=== PATIENT | female | born 1995 | race Caucasian/White ===

== ENCOUNTER 2016-06-16 07:58 | Emergency (ER) | payer BC ==
[~2016-06-16] VITALS: Ht 167.6 cm; Wt 111.9 kg
[2016-06-16] MEDS ORDERED: BUPR-173 PO (08:24)
[2016-06-16] MEDS ORDERED: SERT25TA PO (08:24)
[2016-06-16] MEDS ORDERED: ONDANSETRON 2MG/ML, 2ML IVPush ONE (08:30)
[2016-06-16] MEDS ORDERED: SODIUM CHLORIDE FLUSH 10ML SYR IVF ONE (08:30)
[2016-06-16] MEDS ORDERED: SODIUM CHLORIDE 0.9% 1,000ML IVBOLUS ONE (08:30)
[2016-06-16] MEDS ORDERED: FAMOTIDINE 20 MG/2 ML IVP ONE (08:30)
[2016-06-16 08:40] LABS: HEMOGLOBIN 14.4 g/dL (11.7-16.4)
[2016-06-16] MEDS ORDERED: ONDANSETRON 2MG/ML, 2ML ONE (08:42)
[2016-06-16] MEDS ORDERED: FAMOTIDINE 20 MG/2 ML ONE (08:43)
[2016-06-16 08:52] LABS: BLOOD UREA NITROGEN 16 mg/dL (7-18)
[2016-06-16 10:25] VITALS: BP 136/86
== END 2016-06-16 10:28 | disposition home or self-care (01) ==
LOC: ED 10:10
DX: K29.00 Acute gastritis without bleeding (principal); R11.2 Nausea with vomiting, unspecified; F32.9 Major depressive disorder, single episode, unspecified
CPT/HCPCS: 36415; 80048; 81001; 82040; 84703; 85025; 87086; 96361; 96374; 96375; 99284; J2405; J7030; S0028

== ENCOUNTER 2018-09-13 01:10 | Emergency (ER) | payer BC, OTHER ==
[~2018-09-13] VITALS: Ht 167.6 cm; Wt 119.0 kg
[~2018-09-13 01:10] MED LIST: BUPR-173 PO; SERT25TA PO
[2018-09-13 01:11] VITALS: BP 125/89
[2018-09-13] MEDS ORDERED: SODIUM CHLORIDE FLUSH 10ML SYR IVF ONE (01:30)
[2018-09-13] MEDS ORDERED: SODIUM CHLORIDE 0.9% 1,000ML IVBOLUS ONE (01:30)
[2018-09-13] MEDS ORDERED: ONDANSETRON 2MG/ML, 2ML IVPush ONE (01:30)
[2018-09-13] MEDS ORDERED: ONDANSETRON 2MG/ML, 2ML ONE (01:31)
[2018-09-13 01:49] LABS: BASOPHILS # (AUTO) 0.11 x10^3/uL (0-0.1); BASOPHILS % (AUTO) 1 % (0-1); EOSINOPHILS % (AUTO) 4 % (1-7); LYMPHOCYTES # (AUTO) 3.51 x10^3/uL (1-3.4); LYMPHOCYTES % (AUTO) 37 % (22-44); MD NO; MEAN CORPUSCULAR VOLUME 87.9 fL (80-100); MONOCYTES # (AUTO) 0.83 x10^3/uL (0.2-0.8); MONOCYTES % (AUTO) 9 % (2-9); NEUTROPHILS # (AUTO) 4.62 x10^3/uL (1.8-6.8); NEUTROPHILS % (AUTO) 49 % (42-75); PLATELET COUNT 346 x10^3/uL (130-400); RED BLOOD COUNT 4.33 x10^6/uL (3.82-5.3); RED CELL DISTRIBUTION WIDTH 15.3 % (9.6-15.2)
[2018-09-13 01:59] LABS: ALANINE AMINOTRANSFERASE 24 U/L (12-78); ALBUMIN 3.5 g/dL (3.4-5.0); ANION GAP 6 mmol/L (5-15); CALCIUM 8.7 mg/dL (8.5-10.1); CHLORIDE 109 mmol/L (98-107); CREATININE 0.92 mg/dL (0.55-1.02)
[2018-09-13 02:04] LABS: ALKALINE PHOSPHATASE 71 U/L (45-117); BILIRUBIN,TOTAL 0.3 mg/dL (0.2-1.0); TOTAL PROTEIN 6.8 g/dL (6.4-8.2)
--- NOTE | 2018-09-13 02:32 | NUR ---
PT STATES THAT SHE FEELS BETTER NO N/V DURING PTS STAY
[2018-09-13 02:44] LABS: MICROSCOPIC AUTO
[2018-09-13 02:45] LABS: CULTURE INDICATED? YES
[2018-09-13] MEDS ORDERED: NITROFURANTOIN (MACROBID) 100 MG CAPSULE PO ONE (03:00)
[2018-09-13] MEDS ORDERED: PHENAZOPYRIDINE 200 MG TABLET PO ONE (03:00)
[2018-09-13] MEDS ORDERED: PHENAZOPYRIDINE 200 MG TABLET ONE (03:12)
[2018-09-13] MEDS ORDERED: NITROFURANTOIN (MACROBID) 100 MG CAPSULE ONE (03:12)
--- NOTE | 2018-09-13 03:16 | NUR ---
Patient/Caregiver given discharge instructions and they have confirmed that they understand the instructions. Patient ambulatory with steady gait.
== END 2018-09-13 03:18 | disposition home or self-care (01) ==
LOC: ED 03:12
DX: N30.00 Acute cystitis without hematuria (principal); R11.2 Nausea with vomiting, unspecified; Z87.19 Personal history of other diseases of the digestive system
CPT/HCPCS: 36415; 80053; 81001; 83690; 84703; 85025; 87086; 96374; 99283; J2405; J7030